=== PATIENT | male | born 1970 | race Asian ===

== ENCOUNTER 2018-01-22 22:36 | Inpatient (IN) | payer MEDICAID, OTHER ==
[2018-01-22] MEDS: SOD CHLORIDE 0.9% 1,000 ML IV (23:10)
[2018-01-22 23:16] LABS: ADD MAN DIFF? NO
[2018-01-22 23:19] LABS: BASOPHIL # 0.1 10^3/ul (0.0-0.1); BASOPHILS % 0.7 % (0.0-2.0); EOSINOPHILS # 0.2 10^3/ul (0.0-0.5); EOSINOPHILS % 2.1 % (0.0-7.0); HEMATOCRIT 47.2 % (42.0-52.0); HEMOGLOBIN 16.5 g/dl (14.0-18.0); LYMPHOCYTES # 2.4 10^3/ul (0.8-2.9); LYMPHOCYTES % 20.6 % (15.0-51.0); MEAN CORPUSCULAR HEMOGLOBIN 31.1 pg (29.0-33.0); MEAN CORPUSCULAR VOLUME 89.1 fl (82.0-101.0); MONOCYTE # 0.9 10^3/ul (0.3-0.9); MONOCYTES % 7.9 % (0.0-11.0); NEUTROPHIL # 7.9 10^3/ul (1.6-7.5); NEUTROPHILS % 68.3 % (39.0-77.0); PLATELET COUNT 280 10^3/UL (140-415); RED CELL DISTRIBUTION WIDTH 13.3 % (11.5-14.5)
[2018-01-22 23:19] LABS: WHITE BLOOD COUNT 11.6 10^3/ul (4.8-10.8)
[2018-01-22 23:35] LABS: INR 0.92; PROTIME 12.4 Sec (11.9-14.9)
[2018-01-22 23:36] LABS: PARTIAL THROMBOPLASTIN TIME 35.4 Sec (25.0-35.0)
[2018-01-22 23:39] LABS: ALANINE AMINOTRANSFERASE 17 IU/L (13-69); ALBUMIN 4.4 g/dl (3.3-4.9); ALBUMIN/GLOBULIN RATIO 1.12; ALKALINE PHOSPHATASE 110 IU/L (42-121); ANION GAP 22 (8-16); ASPARTATE AMINO TRANSFERASE 22 IU/L (15-46); BILIRUBIN,INDIRECT 0.1 mg/dl (0-1.1); BILIRUBIN,TOTAL 0.1 mg/dl (0.2-1.3); BLOOD UREA NITROGEN 17 mg/dl (7-20); CALCIUM 9.7 mg/dl (8.4-10.2); CARBON DIOXIDE 20 mmol/L (21-31); CHLORIDE 108 mmol/L (97-110); CREATININE 1.37 mg/dl (0.61-1.24); GLUCOSE 110 mg/dl (70-220); POTASSIUM 3.4 mmol/L (3.5-5.1); SODIUM 147 mmol/L (135-144); TOTAL PROTEIN 8.3 g/dl (6.1-8.1)
[2018-01-22 23:42] LABS: ACETAMINOPHEN < 10.0 ug/ml (10.0-30.0); SALICYLATE < 1.0 mg/dl (5.0-30.0)
[2018-01-22 23:43] LABS: DIGOXIN < 0.4 ng/ml (1.0-2.0)
[2018-01-22 23:49] LABS: TROPONIN-I 0.055 ng/ml (0.00-0.12)
[2018-01-23 00:09] LABS: B-TYPE NATRIURETIC PEPTIDE 2590 PG/ML (0-125)
[2018-01-23 01:23] LABS: ADD UMIC NO; UR ASCORBIC ACID NEGATIVE (NEGATIVE); UR BILIRUBIN (Dip) NEGATIVE (NEGATIVE); UR BLOOD (Dip) NEGATIVE (NEGATIVE); UR CLARITY CLEAR (CLEAR); UR COLOR STRAW (YELLOW); UR GLUCOSE (Dip) NEGATIVE (NEGATIVE); UR KETONES (Dip) NEGATIVE (NEGATIVE); UR LEUKOCYTE ESTERASE (Dip) NEGATIVE Leu/ul (NEGATIVE); UR NITRITE (Dip) NEGATIVE (NEGATIVE); UR SPECIFIC GRAVITY (Dip) 1.004 (1.003-1.030); UR TOTAL PROTEIN (Dip) NEGATIVE (NEGATIVE); UR UROBILINOGEN (Dip) NEGATIVE (NEGATIVE)
[2018-01-23 01:39] LABS: AMPHETAMINE/METHAMPHETAMINE Negative (NEGATIVE); BARBITURATES Negative (NEGATIVE); BENZODIAZEPINES Negative (NEGATIVE); CANNABINOIDS Negative (NEGATIVE); COCAINE Negative (NEGATIVE); OPIATES Negative (NEGATIVE)
[2018-01-23] MEDS ORDERED: LORAZEPAM 2 MG INJ IV ×2 (02:30)
[2018-01-23] MEDS ORDERED: DOCUSATE SODIUM 100 MG CAP PO (02:30)
[2018-01-23] MEDS ORDERED: ACETAMINOPHEN 325 MG TAB PO (02:30)
[2018-01-23] MEDS ORDERED: BISACODYL (EC) 5 MG TAB PO (02:30)
[2018-01-23] MEDS ORDERED: NACL 0.9% 3 ML SYG IV (02:30)
[2018-01-23] MEDS ORDERED: ONDANSETRON 4 MG INJ IV (02:30)
[2018-01-23] MEDS: POTASSIUM CHLORIDE (SR) 20 MEQ TAB PO (06:14)
[2018-01-23] MEDS: CHLORDIAZEPOXIDE 25 MG CAP PO (06:15)
[2018-01-23] MEDS: D5W + KCL 20 MEQ 1,000 ML IV (08:41)
[2018-01-23] MEDS: MULTIVITAMINS 10 ML, THIAMINE 100 MG, FOLIC ACID 1 MG in SOD CHLORIDE 0.9% 1,000 ML IVPB ×2 (08:51→12:41)
[2018-01-23 09:10] LABS: HEMOGLOBIN A1C 5.2 % (0-5.9)
[2018-01-23 09:29] LABS: CREATINE KINASE 138 IU/L (23-200)
[2018-01-23 09:40] LABS: CK INDEX 4.7
[2018-01-23 09:49] LABS: ALANINE AMINOTRANSFERASE 24 IU/L (13-69); ALBUMIN 3.9 g/dl (3.3-4.9); ALBUMIN/GLOBULIN RATIO 1.39; ALKALINE PHOSPHATASE 72 IU/L (42-121); ANION GAP 16 (8-16); ASPARTATE AMINO TRANSFERASE 26 IU/L (15-46); BILIRUBIN,INDIRECT 0.3 mg/dl (0-1.1); BILIRUBIN,TOTAL 0.3 mg/dl (0.2-1.3); BLOOD UREA NITROGEN 16 mg/dl (7-20); CALCIUM 9.2 mg/dl (8.4-10.2); CARBON DIOXIDE 21 mmol/L (21-31); CHLORIDE 108 mmol/L (97-110); CK-MB 6.44 ng/ml (0.0-2.4); CREATININE 1.54 mg/dl (0.61-1.24); GLUCOSE 100 mg/dl (70-220); POTASSIUM 3.8 mmol/L (3.5-5.1); SODIUM 141 mmol/L (135-144); TOTAL PROTEIN 6.7 g/dl (6.1-8.1)
[2018-01-23 10:06] LABS: CHOL/HDL RATIO 3.3 RATIO; HDL CHOLESTEROL 48 mg/dl (28-71); LDL CHOLESTEROL,CALCULATED 65 mg/dl; TRIGLYCERIDES 243 mg/dl (0-149)
[2018-01-23 10:06] LABS: CHOLESTEROL 162 mg/dl (100-200)
[2018-01-23 10:22] LABS: MAGNESIUM 2.3 mg/dl (1.7-2.5)
[2018-01-23] MEDS ORDERED: CHLORDIAZEPOXIDE 25 MG CAP PO (11:30)
[2018-01-23 11:36] LABS: ADD MAN DIFF? NO
[2018-01-23 11:46] LABS: WHITE BLOOD COUNT 10.5 10^3/ul (4.8-10.8)
[2018-01-23 11:46] LABS: BASOPHIL # 0.1 10^3/ul (0.0-0.1); BASOPHILS % 0.7 % (0.0-2.0); EOSINOPHILS % 0.4 % (0.0-7.0); HEMATOCRIT 39.8 % (42.0-52.0); HEMOGLOBIN 13.8 g/dl (14.0-18.0); LYMPHOCYTES # 1.8 10^3/ul (0.8-2.9); LYMPHOCYTES % 16.7 % (15.0-51.0); MEAN CORPUSCULAR HEMOGLOBIN 30.9 pg (29.0-33.0); MEAN CORPUSCULAR HGB CONC 34.7 g/dl (32.0-37.0); MEAN PLATELET VOLUME 10.1 fl (7.4-10.4); MONOCYTES % 9.5 % (0.0-11.0); NEUTROPHIL # 7.6 10^3/ul (1.6-7.5); NEUTROPHILS % 72.3 % (39.0-77.0); PLATELET COUNT 261 10^3/UL (140-415); RED BLOOD COUNT 4.47 10^6/ul (4.70-6.10)
[2018-01-23 11:59] LABS: CREATINE KINASE 169 IU/L (23-200)
[2018-01-23 12:00] LABS: ANION GAP 16 (8-16); BLOOD UREA NITROGEN 16 mg/dl (7-20); CARBON DIOXIDE 21 mmol/L (21-31); CHLORIDE 108 mmol/L (97-110); CREATININE 1.56 mg/dl (0.61-1.24); GLUCOSE 146 mg/dl (70-220); MAGNESIUM 1.9 mg/dl (1.7-2.5); POTASSIUM 3.7 mmol/L (3.5-5.1); SODIUM 141 mmol/L (135-144)
[2018-01-23 12:11] LABS: CK INDEX 4.5
[2018-01-23 12:21] LABS: CK-MB 7.61 ng/ml (0.0-2.4)
[2018-01-23] MEDS: ASPIRIN 325 MG TAB PO (14:53)
[2018-01-23 19:57] LABS: FOLATE 9.5 ng/ml (2.8-20.0)
[2018-01-24] MEDS: hydrALAzine 20 MG INJ IV (00:14)
[2018-01-24] MEDS ORDERED: CHLORDIAZEPOXIDE 25 MG CAP PO (02:30)
[2018-01-24 08:00] LABS: ADD MAN DIFF? NO
[2018-01-24 08:08] LABS: WHITE BLOOD COUNT 10.4 10^3/ul (4.8-10.8)
[2018-01-24 08:08] LABS: BASOPHIL # 0.1 10^3/ul (0.0-0.1); BASOPHILS % 0.6 % (0.0-2.0); EOSINOPHILS # 0.2 10^3/ul (0.0-0.5); EOSINOPHILS % 1.8 % (0.0-7.0); HEMATOCRIT 37.5 % (42.0-52.0); LYMPHOCYTES # 1.4 10^3/ul (0.8-2.9); LYMPHOCYTES % 13.6 % (15.0-51.0); MEAN CORPUSCULAR HEMOGLOBIN 31.6 pg (29.0-33.0); MEAN CORPUSCULAR HGB CONC 34.7 g/dl (32.0-37.0); MEAN PLATELET VOLUME 10.6 fl (7.4-10.4); MONOCYTE # 0.9 10^3/ul (0.3-0.9); MONOCYTES % 8.5 % (0.0-11.0); NEUTROPHIL # 7.8 10^3/ul (1.6-7.5); NEUTROPHILS % 75.1 % (39.0-77.0); PLATELET COUNT 243 10^3/UL (140-415); RED BLOOD COUNT 4.12 10^6/ul (4.70-6.10)
[2018-01-24 08:28] LABS: ANION GAP 16 (8-16); BLOOD UREA NITROGEN 17 mg/dl (7-20); CALCIUM 8.7 mg/dl (8.4-10.2); CARBON DIOXIDE 23 mmol/L (21-31); CHLORIDE 109 mmol/L (97-110); CREATININE 1.41 mg/dl (0.61-1.24); GLUCOSE 97 mg/dl (70-220); MAGNESIUM 1.9 mg/dl (1.7-2.5); POTASSIUM 3.6 mmol/L (3.5-5.1); SODIUM 144 mmol/L (135-144)
[2018-01-24] MEDS: ASPIRIN 81 MG TAB PO (08:45)
[2018-01-25] MEDS ORDERED: CHLORDIAZEPOXIDE 25 MG CAP PO (02:30)
[2018-01-26 15:46] LABS: VITAMIN B1 (THIAMINE) 111 nmol/L (78-185)
== END 2018-01-24 16:54 | disposition home or self-care (01) | DRG 918 ==
LOC: E/R 22:36 → MS4 01-23 01:33
DX: T50.1X2A Poisoning by loop [high-ceiling] diuretics, intentional self-harm, initial encounter (principal); I11.0 Hypertensive heart disease with heart failure; I50.9 Heart failure, unspecified; Y92.009 Unspecified place in unspecified non-institutional (private) residence as the place of occurrence of the external cause; E11.9 Type 2 diabetes mellitus without complications; Z79.4 Long term (current) use of insulin
CPT/HCPCS: 36415; 71045; 80048; 80053; 80061; 80162; 80306; 80307; 81003; 82550; 82553; 82607; 82746; 83036; 83735; 83880; 84425; 84443; 84484; 85025; 85610; 85730; 93005; 93306; 99291-25

== ENCOUNTER 2019-02-07 19:18 | Inpatient (IN) | payer MEDICAID ==
[2019-02-07] MEDS: ASPIRIN 325 MG TAB PO (20:14)
[2019-02-07] MEDS: NITROGLYCERIN (SL) 0.4 MG TAB SL (20:14)
[2019-02-07] MEDS: ONDANSETRON 4 MG INJ IV (20:14)
[2019-02-07] MEDS: morphine 4 MG/ML VIAL IV (20:15)
[2019-02-07 20:25] LABS: ADD MAN DIFF? NO
[2019-02-07 20:29] LABS: BASOPHIL # 0.1 10^3/ul (0.0-0.1); BASOPHILS % 1.1 % (0.0-2.0); EOSINOPHILS # 0.1 10^3/ul (0.0-0.5); EOSINOPHILS % 1.1 % (0.0-7.0); HEMATOCRIT 51.3 % (42.0-52.0); HEMOGLOBIN 16.8 g/dl (14.0-18.0); LYMPHOCYTES # 1.5 10^3/ul (0.8-2.9); LYMPHOCYTES % 18.9 % (15.0-51.0); MEAN CORPUSCULAR HEMOGLOBIN 29.8 pg (29.0-33.0); MEAN CORPUSCULAR HGB CONC 32.7 g/dl (32.0-37.0); MEAN CORPUSCULAR VOLUME 91.1 fl (82.0-101.0); MEAN PLATELET VOLUME 9.5 fl (7.4-10.4); MONOCYTE # 0.6 10^3/ul (0.3-0.9); MONOCYTES % 6.7 % (0.0-11.0); NEUTROPHIL # 5.9 10^3/ul (1.6-7.5); PLATELET COUNT 249 10^3/UL (140-415); RED BLOOD COUNT 5.63 10^6/ul (4.70-6.10); RED CELL DISTRIBUTION WIDTH 15.1 % (11.5-14.5)
[2019-02-07 20:29] LABS: WHITE BLOOD COUNT 8.2 10^3/ul (4.8-10.8)
[2019-02-07] MEDS: NICARDipine HCL 30 MG CAPSULE PO ×2 (20:30)
[2019-02-07] MEDS: ALBUTEROL/IPRATROPIUM (NEB) 3 ML AMP HHN (20:39)
[2019-02-07 20:48] LABS: ALANINE AMINOTRANSFERASE 26 IU/L (13-69); ALBUMIN 4.9 g/dl (3.3-4.9); ALBUMIN/GLOBULIN RATIO 1.22; ALKALINE PHOSPHATASE 117 IU/L (42-121); ANION GAP 14 (5-13); ASPARTATE AMINO TRANSFERASE 29 IU/L (15-46); BILIRUBIN,INDIRECT 1.1 mg/dl (0-1.1); BILIRUBIN,TOTAL 1.1 mg/dl (0.2-1.3); BLOOD UREA NITROGEN 32 mg/dl (7-20); CALCIUM 10.2 mg/dl (8.4-10.2); CARBON DIOXIDE 24 mmol/L (21-31); CHLORIDE 103 mmol/L (97-110); CREATINE KINASE 63 IU/L (23-200); CREATININE 2.86 mg/dl (0.61-1.24); Estimated GFR 24 mL/min (>60); GLUCOSE 123 mg/dl (70-220); INR 1.01; POTASSIUM 4.4 mmol/L (3.5-5.1); PROTIME 13.4 Sec (11.9-14.9); SODIUM 141 mmol/L (135-144); TOTAL PROTEIN 8.9 g/dl (6.1-8.1)
[2019-02-07] MEDS: NITROGLYCERIN 50 MG/D5W (PMX) 250 ML IV (20:48)
[2019-02-07 20:49] LABS: PARTIAL THROMBOPLASTIN TIME 36.9 Sec (23.0-35.0)
[2019-02-07 21:00] LABS: B-TYPE NATRIURETIC PEPTIDE 33400 PG/ML (0-125); CK INDEX 2.7; CK-MB 1.67 ng/ml (0.0-2.4); TROPONIN-I 0.074 ng/ml (0.000-0.120)
[2019-02-07] MEDS: FUROSEMIDE 40 MG INJ IV (21:15)
[2019-02-07] MEDS: LABETALOL HCL 20MG INJ IV (21:51)
[2019-02-07] MEDS ORDERED: BISACODYL (EC) 5 MG TAB PO (23:30)
[2019-02-07] MEDS ORDERED: DOCUSATE SODIUM 100 MG CAP PO (23:30)
[2019-02-07] MEDS ORDERED: ONDANSETRON 4 MG INJ IV (23:30)
[2019-02-08] MEDS: METOLAZONE 2.5 MG TAB PO (00:30)
[2019-02-08] MEDS: HEPARIN 5,000 UNIT/1 ML VIAL SC ×4 (00:30→21:37)
[2019-02-08] MEDS: FUROSEMIDE 20 MG INJ IV ×2 (01:24→11:44)
[2019-02-08 05:31] LABS: ADD MAN DIFF? NO
[2019-02-08 05:33] LABS: WHITE BLOOD COUNT 7.4 10^3/ul (4.8-10.8)
[2019-02-08 05:33] LABS: BASOPHIL # 0.1 10^3/ul (0.0-0.1); BASOPHILS % 1.1 % (0.0-2.0); EOSINOPHILS # 0.1 10^3/ul (0.0-0.5); EOSINOPHILS % 1.2 % (0.0-7.0); HEMATOCRIT 41.4 % (42.0-52.0); HEMOGLOBIN 13.9 g/dl (14.0-18.0); LYMPHOCYTES # 1.4 10^3/ul (0.8-2.9); LYMPHOCYTES % 18.9 % (15.0-51.0); MEAN CORPUSCULAR HEMOGLOBIN 30.3 pg (29.0-33.0); MEAN CORPUSCULAR HGB CONC 33.6 g/dl (32.0-37.0); MEAN CORPUSCULAR VOLUME 90.4 fl (82.0-101.0); MEAN PLATELET VOLUME 9.7 fl (7.4-10.4); MONOCYTE # 0.7 10^3/ul (0.3-0.9); NEUTROPHIL # 5.1 10^3/ul (1.6-7.5); NEUTROPHILS % 69.5 % (39.0-77.0); PLATELET COUNT 236 10^3/UL (140-415); RED BLOOD COUNT 4.58 10^6/ul (4.70-6.10); RED CELL DISTRIBUTION WIDTH 14.6 % (11.5-14.5)
[2019-02-08] MEDS: PANTOPRAZOLE 40 MG INJ IV (05:46)
[2019-02-08] MEDS: FUROSEMIDE 40 MG INJ IV (05:46)
[2019-02-08 05:53] LABS: HEMOGLOBIN A1C 5.8 % (0-5.9)
[2019-02-08] MEDS: NITROGLYCERIN 50 MG/D5W (PMX) 250 ML IV ×3 (06:03→14:05)
[2019-02-08 06:18] LABS: ALANINE AMINOTRANSFERASE 25 IU/L (13-69); ALBUMIN 4.1 g/dl (3.3-4.9); ALBUMIN/GLOBULIN RATIO 1.24; ALKALINE PHOSPHATASE 87 IU/L (42-121); ANION GAP 12 (5-13); ASPARTATE AMINO TRANSFERASE 24 IU/L (15-46); BILIRUBIN,INDIRECT 0.8 mg/dl (0-1.1); BILIRUBIN,TOTAL 0.8 mg/dl (0.2-1.3); BLOOD UREA NITROGEN 35 mg/dl (7-20); CALCIUM 9.6 mg/dl (8.4-10.2); CARBON DIOXIDE 26 mmol/L (21-31); CHLORIDE 104 mmol/L (97-110); CHOL/HDL RATIO 3.3 RATIO; CHOLESTEROL 109 mg/dl (100-200); CREATININE 2.99 mg/dl (0.61-1.24); Estimated GFR 22 mL/min (>60); GLUCOSE 110 mg/dl (70-220); HDL CHOLESTEROL 33 mg/dl (28-71); LDL CHOLESTEROL,CALCULATED 59 mg/dl; POTASSIUM 4.1 mmol/L (3.5-5.1); SODIUM 142 mmol/L (135-144); TOTAL PROTEIN 7.4 g/dl (6.1-8.1); TRIGLYCERIDES 87 mg/dl (0-149)
[2019-02-08 06:19] LABS: CREATINE KINASE 53 IU/L (23-200)
[2019-02-08 06:24] LABS: CK INDEX 2.7; CK-MB 1.45 ng/ml (0.0-2.4); TROPONIN-I 0.085 ng/ml (0.000-0.120)
[2019-02-08 10:47] LABS: CREATINE KINASE 53 IU/L (23-200)
[2019-02-08 11:01] LABS: CK INDEX 2.4; CK-MB 1.25 ng/ml (0.0-2.4); TROPONIN-I 0.067 ng/ml (0.000-0.120)
[2019-02-08] MEDS: ACETAMINOPHEN 650MG/20.3ML CUP PO (12:35)
[2019-02-08] MEDS ORDERED: ISOSORBIDE DINITRATE 10 MG TAB PO (13:00)
[2019-02-08 13:20] LABS: SODIUM,URINE RANDOM 89 mmol/L (30-90)
[2019-02-08 13:36] LABS: CREATININE,URINE RANDOM 20.03 mg/dl (20-370); PROTEIN/CREAT RATIO 0.94 RATIO
[2019-02-08] MEDS: AMLODIPINE 10 MG TAB PO (13:49)
[2019-02-09] MEDS: PANTOPRAZOLE (EC) 40 MG TAB PO (06:31)
[2019-02-09 06:32] LABS: ADD MAN DIFF? NO
[2019-02-09] MEDS: HEPARIN 5,000 UNIT/1 ML VIAL SC ×3 (06:35→21:43)
[2019-02-09 06:42] LABS: WHITE BLOOD COUNT 7.1 10^3/ul (4.8-10.8)
[2019-02-09 06:42] LABS: BASOPHIL # 0.1 10^3/ul (0.0-0.1); EOSINOPHILS # 0.1 10^3/ul (0.0-0.5); EOSINOPHILS % 1.8 % (0.0-7.0); HEMOGLOBIN 13.7 g/dl (14.0-18.0); LYMPHOCYTES # 1.4 10^3/ul (0.8-2.9); LYMPHOCYTES % 19.2 % (15.0-51.0); MEAN CORPUSCULAR HEMOGLOBIN 29.4 pg (29.0-33.0); MEAN CORPUSCULAR HGB CONC 33.4 g/dl (32.0-37.0); MEAN PLATELET VOLUME 10.2 fl (7.4-10.4); MONOCYTE # 0.7 10^3/ul (0.3-0.9); MONOCYTES % 9.6 % (0.0-11.0); NEUTROPHIL # 4.8 10^3/ul (1.6-7.5); NEUTROPHILS % 68.1 % (39.0-77.0); PLATELET COUNT 228 10^3/UL (140-415); RED BLOOD COUNT 4.66 10^6/ul (4.70-6.10); RED CELL DISTRIBUTION WIDTH 14.5 % (11.5-14.5)
[2019-02-09 06:55] LABS: CREATINE KINASE 44 IU/L (23-200)
[2019-02-09 06:55] LABS: URIC ACID 10.3 mg/dl (3.1-7.9)
[2019-02-09 06:59] LABS: ALANINE AMINOTRANSFERASE 23 IU/L (13-69); ALBUMIN 3.8 g/dl (3.3-4.9); ALBUMIN/GLOBULIN RATIO 1.26; ALKALINE PHOSPHATASE 115 IU/L (42-121); ANION GAP 12 (5-13); ASPARTATE AMINO TRANSFERASE 14 IU/L (15-46); BILIRUBIN,INDIRECT 0.5 mg/dl (0-1.1); BILIRUBIN,TOTAL 0.5 mg/dl (0.2-1.3); BLOOD UREA NITROGEN 33 mg/dl (7-20); CALCIUM 9.5 mg/dl (8.4-10.2); CARBON DIOXIDE 25 mmol/L (21-31); CHLORIDE 102 mmol/L (97-110); CREATININE 3.15 mg/dl (0.61-1.24); Estimated GFR 21 mL/min (>60); GLUCOSE 97 mg/dl (70-220); POTASSIUM 3.4 mmol/L (3.5-5.1); SODIUM 139 mmol/L (135-144); TOTAL PROTEIN 6.8 g/dl (6.1-8.1)
[2019-02-09] MEDS: ASPIRIN 81 MG TAB PO (08:13)
[2019-02-09] MEDS: AMLODIPINE 10 MG TAB PO (08:14)
[2019-02-09] MEDS: POTASSIUM CHLORIDE 20 MEQ POWDER FOR ORAL SOLN PO (14:36)
[2019-02-09] MEDS: FUROSEMIDE 40 MG TAB PO (14:36)
[2019-02-09] MEDS: ALLOPURINOL 100 MG TAB PO (21:14)
[2019-02-10] MEDS: PANTOPRAZOLE (EC) 40 MG TAB PO (06:18)
[2019-02-10 06:24] LABS: ADD MAN DIFF? NO
[2019-02-10] MEDS: HEPARIN 5,000 UNIT/1 ML VIAL SC ×2 (06:34→14:00)
[2019-02-10 06:39] LABS: WHITE BLOOD COUNT 7.1 10^3/ul (4.8-10.8)
[2019-02-10 06:39] LABS: BASOPHIL # 0.1 10^3/ul (0.0-0.1); BASOPHILS % 1.1 % (0.0-2.0); EOSINOPHILS # 0.1 10^3/ul (0.0-0.5); EOSINOPHILS % 1.8 % (0.0-7.0); HEMATOCRIT 41.7 % (42.0-52.0); HEMOGLOBIN 14.3 g/dl (14.0-18.0); LYMPHOCYTES # 1.3 10^3/ul (0.8-2.9); LYMPHOCYTES % 18.4 % (15.0-51.0); MEAN CORPUSCULAR HEMOGLOBIN 30.1 pg (29.0-33.0); MEAN CORPUSCULAR HGB CONC 34.3 g/dl (32.0-37.0); MEAN CORPUSCULAR VOLUME 87.8 fl (82.0-101.0); MEAN PLATELET VOLUME 10.3 fl (7.4-10.4); MONOCYTE # 0.8 10^3/ul (0.3-0.9); MONOCYTES % 10.9 % (0.0-11.0); NEUTROPHIL # 4.8 10^3/ul (1.6-7.5); NEUTROPHILS % 67.4 % (39.0-77.0); PLATELET COUNT 242 10^3/UL (140-415); RED BLOOD COUNT 4.75 10^6/ul (4.70-6.10); RED CELL DISTRIBUTION WIDTH 14.3 % (11.5-14.5)
[2019-02-10 07:07] LABS: ALANINE AMINOTRANSFERASE 20 IU/L (13-69); ALBUMIN 4.2 g/dl (3.3-4.9); ALBUMIN/GLOBULIN RATIO 1.27; ALKALINE PHOSPHATASE 113 IU/L (42-121); ANION GAP 12 (5-13); ASPARTATE AMINO TRANSFERASE 20 IU/L (15-46); BILIRUBIN,INDIRECT 0.6 mg/dl (0-1.1); BILIRUBIN,TOTAL 0.6 mg/dl (0.2-1.3); BLOOD UREA NITROGEN 33 mg/dl (7-20); CALCIUM 9.5 mg/dl (8.4-10.2); CARBON DIOXIDE 24 mmol/L (21-31); CHLORIDE 103 mmol/L (97-110); Estimated GFR 22 mL/min (>60); GLUCOSE 105 mg/dl (70-220); POTASSIUM 3.7 mmol/L (3.5-5.1); SODIUM 139 mmol/L (135-144); TOTAL PROTEIN 7.5 g/dl (6.1-8.1)
[2019-02-10] MEDS: ALLOPURINOL 100 MG TAB PO (08:05)
[2019-02-10] MEDS: ASPIRIN 81 MG TAB PO (08:05)
[2019-02-10] MEDS: FUROSEMIDE 40 MG TAB PO (08:06)
[2019-02-10] MEDS: AMLODIPINE 10 MG TAB PO (08:06)
[2019-02-10] MEDS: LOSARTAN 50 MG TAB PO (10:13)
== END 2019-02-10 15:30 | disposition home or self-care (01) | DRG 291 ==
LOC: ICU 22:21 → E/R 19:18 → 6WM 02-08 20:30
DX: I13.0 Hypertensive heart and chronic kidney disease with heart failure and stage 1 through stage 4 chronic kidney disease, or unspecified chronic kidney disease (principal); I50.33 Acute on chronic diastolic (congestive) heart failure; N17.9 Acute kidney failure, unspecified; I16.1 Hypertensive emergency; I42.9 Cardiomyopathy, unspecified; N18.3 Chronic kidney disease, stage 3 (moderate); E78.5 Hyperlipidemia, unspecified; E87.6 Hypokalemia; Z72.0 Tobacco use; Z79.82 Long term (current) use of aspirin; Z95.0 Presence of cardiac pacemaker
CPT/HCPCS: 71045; 76775; 80053; 80061; 81003; 82306; 82550; 82553; 82570; 83036; 83735; 83880; 84300; 84443; 84484; 84560; 85025; 85610; 85730; 87081; 89190; 93005; 93306; 96374; 96375; 99291-25